=== PATIENT | female | born 1970 | race African-American/Black ===

== ENCOUNTER → 2017-03-30 | Outpatient (CLI) | payer OTHER ==
[2016-04-28 13:36] VITALS: BP 146/105
[2017-03-30 11:50] LABS: BASOPHILS % (AUTO) 0.5 % (0.2-1.0); EOSINOPHILS # (AUTO) 0.1 x10^3/uL (0.0-0.2); EOSINOPHILS % (AUTO) 1.1 % (0.9-2.9); HEMATOCRIT 37.1 % (36.0-47.0); HEMOGLOBIN 12.4 g/dL (12.0-16.0); LYMPHOCYTES # (AUTO) 3.1 X10^3/uL (1.3-2.9); LYMPHOCYTES % (AUTO) 39.9 % (21.0-51.0); MEAN CORPUSCULAR HEMOGLOBIN 28.1 pg (27.0-34.0); MEAN CORPUSCULAR HGB CONC 33.4 g/dL (33.0-35.0); MEAN CORPUSCULAR VOLUME 84.1 fL (80.0-100.0); MEAN PLATELET VOLUME 6.9 fL (7.4-11.0); MONOCYTES # (AUTO) 0.4 x10^3/uL (0.3-0.8); MONOCYTES % (AUTO) 5.4 % (0.0-13.0); NEUTROPHILS # (AUTO) 4.1 x10^3/uL (2.2-4.8); NEUTROPHILS % (AUTO) 53.1 % (42.0-75.0); PLATELET COUNT 273 X10^3/uL (150.0-450.0); RED BLOOD COUNT 4.41 X10^6/uL (3.5-5.4); RED CELL DISTRIBUTION WIDTH 13.2 % (11.6-16.5); WHITE BLOOD COUNT 7.7 X10^3/uL (3.6-10.0)
[2017-03-30 12:04] LABS: ALANINE AMINOTRANSFERASE 23 Units/L (12-78); ALBUMIN 3.6 g/dL (3.4-5.0); ALKALINE PHOSPHATASE 96 Units/L (46-116); ASPARTATE AMINO TRANSFERASE 16 Units/L (15-37); BLOOD UREA NITROGEN 13 mg/dL (7-18); CARBON DIOXIDE 33.5 mmol/L (21-32); CHLORIDE 104 mmol/L (98-107); CHOL/HDL RATIO 3.1 (0.0-5.0); CHOLESTEROL 190 mg/dL (0-200); COR NA(FOR HYPERGLY) 140 mmol/L (136-145); CREATININE 0.96 mg/dL (0.55-1.02); GLUCOSE 119 mg/dL (65-99); HDL CHOLESTEROL 61 mg/dL (40-60); SODIUM 140 mmol/L (136-145); TOTAL PROTEIN 8.2 g/dL (6.4-8.2); TRIGLYCERIDES 81 mg/dL (0-150); eGFR BLACK RACES > 60 (>60); eGFR NON BLACK RACES > 60 (>60)
--- NOTE | 2017-03-30 12:17 | RAD ---
Three views of the right knee Indication: Right knee pain Findings: There is moderate medial femorotibial and patellofemoral compartment degenerative change. Mild lateral femorotibial compartment degenerative change is noted. No suprapatellar joint effusion. No fracture or dislocation. Impression: Tricompartmental osteoarthrosis most severely affecting the medial femorotibial and nicholson llofemoral compartments without fracture, dislocation or joint effusion. Reported By:
--- NOTE | 2017-03-30 12:18 | RAD ---
Three views of the left knee Indication: Left knee pain Findings: There is moderate tricompartmental osteoarthrosis. No suprapatellar joint effusion. No acu te fracture or dislocation. No localizing soft tissue swelling. Impression: Moderate tricompartmental osteoarthrosis without fracture, dislocation or joint effusion . Reported By:
--- NOTE | 2017-03-30 12:19 | RAD ---
HISTORY: Nontraumatic right shoulder pain Study: Right shoulder three view Comparison: None Findings: The appearance of the clavicle and AC joint are unremarkable. The glenohumeral articulation is norm al in its appearance. No acute cortical disruption or dislocation can be identified. The visualize d portions of the scapula are unremarkable. In addition, the visualized portions of the right hemit horax appear normal. IMPRESSION: 1. Negative exam. Reported By:
--- NOTE | 2017-03-30 12:19 | RAD ---
Three views of the left shoulder Indication: Shoulder pain Findings: No fracture lower dislocation within the left shoulder. No degenerative change identified within the AC or glenohumeral joints. No displaced left-sided rib fracture. Visualized left thorax i s clear. No localizing soft tissue swelling. Impression: No radiographic abnormality identified within the left shoulder. Reported By:
--- NOTE | 2017-03-30 12:20 | RAD ---
HISTORY: Cervical spondylosis, neck pain Study: Cervical spine five view Comparison: None Findings: The prevertebral soft tissues are normal. The alignment is normal. The vertebral bodies are of avera ge height. Degenerative disc disease is present C4-5 and C6-7. The neural foramina are patent. The j oints are within normal limits. IMPRESSION: Degenerative disc disease C4-5, C6-7 Reported By:
[2017-03-30 12:43] LABS: ERYTHROCYTE SEDIMENTATION RATE 39 MM/HOUR (0-20)
== END | disposition home or self-care (01) ==
LOC: LAB 11:13
PROVIDERS: ATTEND Nurse Practitioner Family
DX: Z13.220 Encounter for screening for lipoid disorders (principal); M25.511 Pain in right shoulder; M25.512 Pain in left shoulder; M25.561 Pain in right knee; M25.562 Pain in left knee; M47.812 Spondylosis without myelopathy or radiculopathy, cervical region; I10 Essential (primary) hypertension; M50.321 Other cervical disc degeneration at C4-C5 level; M17.0 Bilateral primary osteoarthritis of knee
CPT/HCPCS: 36415; 72050; 73030; 73564; 80053; 80061; 85025; 85652; 86140

== ENCOUNTER → 2017-09-25 | Outpatient (CLI) | payer OTHER ==
[2016-04-28 13:36] VITALS: BP 146/105
[2017-09-25 09:33] LABS: ALANINE AMINOTRANSFERASE 15 Units/L (12-78); ALBUMIN 3.2 g/dL (3.4-5.0); ALKALINE PHOSPHATASE 86 Units/L (46-116); ASPARTATE AMINO TRANSFERASE 14 Units/L (15-37); BLOOD UREA NITROGEN 13 mg/dL (7-18); CALCIUM 8.9 mg/dL (8.5-10.1); CARBON DIOXIDE 31.1 mmol/L (21-32); CHLORIDE 103 mmol/L (98-107); COR CA(FOR HYPOALB) 9.5 mg/dL (8.5-10.1); CREATININE 0.88 mg/dL (0.55-1.02); SODIUM 138 mmol/L (136-145); TOTAL PROTEIN 7.6 g/dL (6.4-8.2); eGFR BLACK RACES > 60 (>60); eGFR NON BLACK RACES > 60 (>60)
[2017-09-25 09:34] LABS: HEMOGLOBIN A1C 5.9 %
[2017-09-25 10:47] LABS: BASOPHILS % (AUTO) 0.4 % (0.2-1.0); EOSINOPHILS # (AUTO) 0.1 x10^3/uL (0.0-0.2); EOSINOPHILS % (AUTO) 1.3 % (0.9-2.9); HEMATOCRIT 37.4 % (36.0-47.0); HEMOGLOBIN 12.4 g/dL (12.0-16.0); LYMPHOCYTES # (AUTO) 3.2 X10^3/uL (1.3-2.9); LYMPHOCYTES % (AUTO) 37.8 % (21.0-51.0); MEAN CORPUSCULAR HEMOGLOBIN 28.9 pg (27.0-34.0); MEAN CORPUSCULAR VOLUME 87.4 fL (80.0-100.0); MEAN PLATELET VOLUME 7.3 fL (7.4-11.0); MONOCYTES # (AUTO) 0.5 x10^3/uL (0.3-0.8); MONOCYTES % (AUTO) 6.3 % (0.0-13.0); NEUTROPHILS # (AUTO) 4.6 x10^3/uL (2.2-4.8); NEUTROPHILS % (AUTO) 54.2 % (42.0-75.0); PLATELET COUNT 279 X10^3/uL (150.0-450.0); RED BLOOD COUNT 4.29 X10^6/uL (3.5-5.4); RED CELL DISTRIBUTION WIDTH 13.9 % (11.6-16.5); WHITE BLOOD COUNT 8.4 X10^3/uL (3.6-10.0)
[2017-09-25 11:36] LABS: ERYTHROCYTE SEDIMENTATION RATE 44 MM/HOUR (0-20)
== END ==
LOC: LAB 08:45
PROVIDERS: ATTEND Nurse Practitioner Family
DX: B37.3 Candidiasis of vulva and vagina (principal); I10 Essential (primary) hypertension; M79.7 Fibromyalgia
CPT/HCPCS: 36415; 80053; 83036; 85025; 85652; 86140